=== PATIENT | female | born 1980 | race Native Hawaiian/Other Pacific Islander ===

== ENCOUNTER 2023-04-05 23:43 | Emergency (ER) | payer SELFPAY ==
[2023-04-06] MEDS ORDERED: Sulfamethoxazole/Trimethoprim 800-160 MG Tab PO ONE (02:22)
[2023-04-06] MEDS ORDERED: Acetaminophen/oxyCODONE 325-5 MG Tab PO STA (02:22)
[2023-04-06] MEDS ORDERED: Ketorolac 30 MG/ML SDV IM STA (02:22)
[2023-04-06] MEDS ORDERED: Cephalexin 500 MG Cap PO ONE (02:22)
== END 2023-04-06 02:53 | disposition home or self-care (01) ==
LOC: FB.ED 23:43
DX: L03.811 Cellulitis of head [any part, except face] (principal); Z88.0 Allergy status to penicillin
CPT/HCPCS: 96372; 99282; A9270; J1885